=== PATIENT | male | born 1935 | race Caucasian/White ===

== ENCOUNTER 2017-03-15 16:33 | Inpatient (IN) | payer OTHER ==
[~2017-03-15] VITALS: Ht 180.3 cm; Wt 161.4 kg
--- NOTE | ~2017-03-15 | EC ---
PATIENT:OMAIRA CARPENTER DATE OF SERVICE: 03/15/17 SEX: M MEDICAL RECORD: [id number] DATE OF : 35 LOCATION:D. D.212 AGE OF PATIENT: 81 ADMISSION DATE: 03/15/17 REFERRING PHYSICIAN: INTERPRETING PHYSICIAN: SOLOMON MURRIETA MD ECHOCARDIOGRAM REPORT ECHO CHARGES 5 ECHO LIMITED CLINICAL DIAGNOSIS: CHF ECHOCARDIOGRAPHIC MEASUREMENTS (adult normal given) AC root (d.<3.7cm) 3.8 cm LV Septum d (<1.2 cm> 2.0 cm Valve Excursion 1.6 cm LV Septum (systole) 2.1 cm Left Atria (s.<4.0cm> 3.4 cm LVPW d(<1.2cm) 1.9 cm RV (d.<2.3cm) cm LVPW (sytole) 2.2 cm LV diastole(<5.6CM) 4.7 cm MV E-F(>70mm/sec) cm LV systole 2.6 cm LVOT Diameter 1.7 cm MV exc.(>10mm) cm Est.ejection fraction (50-75%) % Pericardial Effusion N DOPPLER: LVIT cm/sec A cm/sec E cm/sec LA cm/sec RVSP mmHg LVOT cm/sec AOP1/2T m/s Asc. Ao cm/sec RVOT cm/sec RA cm/sec PA cm/sec AV Gradient Peak mmHg AV Mean mmHg AV Area cm MV Gradient Peak mmHg MV Mean mmHg MV Area cm COMMENTS: Phototypesetter Operator: Shwetha LERMA Can Carrier: 2 Dr. Adan TAPE# PACS DATE OF SERVICE: 03/16/2017 PROCEDURE: Echocardiogram. FINDINGS: 1. Left ventricle chamber size is within normal limits. Left ventricular systolic function is normal. Overall ejection fraction estimated at 60%. 2. Left atrium, right atrium, and right ventricle chamber sizes are within normal limits. Left atrium measures 3.4 cm. 3. Valvular structures have normal structure and motion. ECHOCARDIOGRAM REPORT [id number] OMAIRA CARPENTER 4. Doppler interrogation reveals no significant valvular insufficiency or stenosis. 5. No evidence of pericardial effusion or left ventricular thrombus. TRANSINT:[id number] Voice Confirmation ID: [id number] DOCUMENT ID: [id number] SOLOMON MURRIETA MD at 1025 CC: [id number] DICTATION DATE: 03/17/17 0956 JEWELRY MOLD MAKER: 03/17/[address] [facility] [address] [id number]
[~2017-03-15 16:33] MED LIST: ARICEPT10 MG PO; ATIVAN1 MG PO; CELEXA20 MG PO; K-TAB10 MEQ PO; NEURONTIN 300300 MG PO; NORCO 10/325 TA1 TA1 PO; PRAVACHOL40 MG PO; PRINIVIL20 MG PO; ZYLOPRIM300 MG PO
[2017-03-15 17:12] LABS: BASOPHILS 0.3 % (0-2); EOSINOPHILS 4.1 % (0-7); HEMATOCRIT 33.8 % (42.0-54.0); HEMOGLOBIN 11.1 g/dL (13.5-17.5); IMMATURE GRANULOCYTES 0.5 % (0-5); LYMPHOCYTES 6.2 % (15-50); MCH 29.2 pg (26.0-34.0); MCHC 32.8 g/dL (31.0-37.0); MCV 88.9 fL (80.0-100.0); MONOCYTES 6.6 % (2-11); NEUTROPHILS 82.3 % (40-80); PLATELET COUNT 184 10x3/uL (130-400); RDW 14.2 % (11.5-14.5); WBC 10.5 10x3/uL (4.8-10.8)
[2017-03-15 17:40] LABS: ALKALINE PHOSPHATASE 88 U/L (46-116); ALT (SGPT) 38 U/L (10-68); CALC OSMOLALITY 277 mosm/kg (275-300); CALCIUM 8.6 mg/dL (8.5-10.1); CARBON DIOXIDE 23.1 mmol/L (21.0-32.0); CHLORIDE - SERUM 102 mmol/L (98-107); CREATININE - SERUM 1.4 mg/dL (0.6-1.3); GLUCOSE 125 mg/dL (74-106); POTASSIUM - SERUM 4.3 mmol/L (3.5-5.1); PROTEIN - SERUM 7.5 g/dL (6.4-8.2); SODIUM 137 mmol/L (136-145); UREA NITROGEN 20 mg/dL (7-18); eGFR NON AFRICAN AMERICAN 52 mL/min (90-120)
[2017-03-15 17:57] LABS: CREATINE KINASE 262 UL (21-232); MAGNESIUM - SERUM 2.3 mg/dL (1.8-2.4); PRO BNP 190 pg/mL (0-450); TROPONIN-I < 0.017 ng/mL (0.000-0.060)
[2017-03-15 18:38] LABS: CKMB 2.1 U/L (0.0-3.6)
[2017-03-15 19:00] VITALS: BP 157/76
[2017-03-15 19:31] LABS: APPEARANCE CLEAR (CLEAR); BILIRUBIN NEGATIVE (NEGATIVE); COLOR YELLOW (YELLOW); GLUCOSE NEGATIVE (NEGATIVE); KETONE NEGATIVE (NEGATIVE); NITRITE NEGATIVE (NEGATIVE); PROTEIN TRACE mg/dL (NEGATIVE); UROBILINOGEN NORMAL (NORMAL)
[2017-03-16] VITALS (7 sets, daily range): BP systolic 121–166; BP diastolic 45–91; Ht 180.3 cm; Wt 161.4 kg
[2017-03-16] MEDS ORDERED: TIMOPTIC 0.5 % O5 ML EACH EYE (01:49)
[2017-03-16 14:00] LABS: % SATURATION 17 % (15-55); IRON 36 ug/dl (35-150); TOTAL IRON BIND CAPACITY 207 ug/dl (260-445); UNSAT IRON BIND CAPACITY 171 ug/dl (150-375)
[2017-03-17] VITALS: BP 96/63
[2017-03-17 04:00] VITALS: BP 143/79
[2017-03-17 05:56] LABS: ANION GAP 14.6 mmol/L (8-16); CALCIUM 8.8 mg/dL (8.5-10.1); CARBON DIOXIDE 28.6 mmol/L (21.0-32.0); CREATININE - SERUM 1.6 mg/dL (0.6-1.3); POTASSIUM - SERUM 4.2 mmol/L (3.5-5.1)
[2017-03-17 06:31] LABS: BASOPHILS 0.3 % (0-2); EOSINOPHILS 4.1 % (0-7); HEMATOCRIT 39.5 % (42.0-54.0); HEMOGLOBIN 12.7 g/dL (13.5-17.5); IMMATURE GRANULOCYTES 0.5 % (0-5); LYMPHOCYTES 8.6 % (15-50); MCH 28.7 pg (26.0-34.0); MCHC 32.2 g/dL (31.0-37.0); MCV 89.4 fL (80.0-100.0); MEAN PLATELET VOLUME 9.7 fL (7.4-10.4); MONOCYTES 5.1 % (2-11); NEUTROPHILS 81.4 % (40-80); RBC 4.42 10x6/uL (4.20-6.10); RDW 14.3 % (11.5-14.5); WBC 8.7 10x3/uL (4.8-10.8)
[2017-03-17 06:54] LABS: PLATELET COUNT 251 10x3/uL (130-400)
[2017-03-17 07:26] LABS: FOLATE (FOLIC ACID) - SERUM >20.0 ng/mL (>3.0)
[2017-03-17 07:42] VITALS: BP 132/68
[2017-03-17 12:41] VITALS: BP 119/52
[2017-03-17 17:09] VITALS: BP 136/69
[2017-03-17 19:00] VITALS: BP 120/47
[2017-03-18 06:29] LABS: BASOPHILS 0.3 % (0-2); EOSINOPHILS 5.5 % (0-7); HEMATOCRIT 37.1 % (42.0-54.0); HEMOGLOBIN 11.9 g/dL (13.5-17.5); IMMATURE GRANULOCYTES 0.6 % (0-5); LYMPHOCYTES 11.9 % (15-50); MCH 28.7 pg (26.0-34.0); MCHC 32.1 g/dL (31.0-37.0); MCV 89.4 fL (80.0-100.0); MEAN PLATELET VOLUME 9.4 fL (7.4-10.4); MONOCYTES 6.9 % (2-11); NEUTROPHILS 74.8 % (40-80); PLATELET COUNT 229 10x3/uL (130-400); RBC 4.15 10x6/uL (4.20-6.10); RDW 14.4 % (11.5-14.5); WBC 7.1 10x3/uL (4.8-10.8)
[2017-03-18 06:39] LABS: CALCIUM 9.2 mg/dL (8.5-10.1); CARBON DIOXIDE 28.2 mmol/L (21.0-32.0); CREATININE - SERUM 1.6 mg/dL (0.6-1.3); POTASSIUM - SERUM 4.2 mmol/L (3.5-5.1)
[2017-03-18 08:26] VITALS: BP 116/62
[2017-03-18 11:40] VITALS: BP 140/57
[2017-03-18 16:11] VITALS: BP 114/75
[2017-03-18 20:25] VITALS: BP 162/72
[2017-03-19 01:13] VITALS: BP 132/41
[2017-03-19 04:32] VITALS: BP 113/61
[2017-03-19 05:39] LABS: HEMATOCRIT 36.2 % (42.0-54.0); MCH 28.9 pg (26.0-34.0); MCHC 33.1 g/dL (31.0-37.0); MCV 87.2 fL (80.0-100.0); MEAN PLATELET VOLUME 8.8 fL (7.4-10.4); NEUTROPHILS 81.1 % (40-80); PLATELET COUNT 252 10x3/uL (130-400); RBC 4.15 10x6/uL (4.20-6.10); RDW 14.6 % (11.5-14.5); WBC 7.7 10x3/uL (4.8-10.8)
[2017-03-19 05:56] LABS: ANION GAP 16.5 mmol/L (8-16); CALCIUM 9.1 mg/dL (8.5-10.1); CARBON DIOXIDE 24.2 mmol/L (21.0-32.0); CREATININE - SERUM 1.7 mg/dL (0.6-1.3); POTASSIUM - SERUM 3.7 mmol/L (3.5-5.1)
[2017-03-19 08:32] VITALS: BP 128/83
[2017-03-19 11:24] VITALS: BP 133/80
[2017-03-19 15:46] VITALS: BP 134/82
[2017-03-19 20:00] VITALS: BP 112/55
[2017-03-20 06:37] LABS: ANION GAP 14.8 mmol/L (8-16); CREATININE - SERUM 1.7 mg/dL (0.6-1.3); POTASSIUM - SERUM 3.8 mmol/L (3.5-5.1)
[2017-03-20 07:00] LABS: BASOPHILS 0.3 % (0-2); EOSINOPHILS 2.9 % (0-7); HEMATOCRIT 39.1 % (42.0-54.0); HEMOGLOBIN 12.7 g/dL (13.5-17.5); LYMPHOCYTES 9.9 % (15-50); MCH 28.5 pg (26.0-34.0); MCHC 32.5 g/dL (31.0-37.0); MCV 87.9 fL (80.0-100.0); MEAN PLATELET VOLUME 9.6 fL (7.4-10.4); MONOCYTES 7.2 % (2-11); NEUTROPHILS 78.7 % (40-80); PLATELET COUNT 251 10x3/uL (130-400); RBC 4.45 10x6/uL (4.20-6.10); RDW 14.2 % (11.5-14.5); WBC 9.4 10x3/uL (4.8-10.8)
[2017-03-20 07:45] VITALS: BP 150/85
[2017-03-20 15:19] LABS: ANA REFLEX - DIRECT Negative (Negative)
[2017-03-20 16:17] VITALS: BP 142/75
[2017-03-20 19:00] VITALS: BP 135/68
[2017-03-20 21:13] LABS: ERYTHROCYTE SEDIMENTATION RATE 39 mm/hr (0-20)
[2017-03-21 04:00] VITALS: BP 125/74
[2017-03-21 05:58] LABS: BASOPHILS 0.3 % (0-2); EOSINOPHILS 2.4 % (0-7); HEMATOCRIT 38.3 % (42.0-54.0); HEMOGLOBIN 12.3 g/dL (13.5-17.5); IMMATURE GRANULOCYTES 0.9 % (0-5); LYMPHOCYTES 9.7 % (15-50); MCH 28.8 pg (26.0-34.0); MCHC 32.1 g/dL (31.0-37.0); MCV 89.7 fL (80.0-100.0); MEAN PLATELET VOLUME 9.4 fL (7.4-10.4); MONOCYTES 6.8 % (2-11); NEUTROPHILS 79.9 % (40-80); PLATELET COUNT 237 10x3/uL (130-400); RBC 4.27 10x6/uL (4.20-6.10); RDW 14.3 % (11.5-14.5); WBC 10.9 10x3/uL (4.8-10.8)
[2017-03-21 06:28] LABS: ALBUMIN 3.1 g/dL (3.4-5.0); ANION GAP 17.4 mmol/L (8-16); BILIRUBIN - TOTAL 0.44 mg/dL (0.2-1.3); CARBON DIOXIDE 24.8 mmol/L (21.0-32.0); CREATININE - SERUM 2.1 mg/dL (0.6-1.3); POTASSIUM - SERUM 4.2 mmol/L (3.5-5.1); PROTEIN - SERUM 7.8 g/dL (6.4-8.2)
[2017-03-21 08:46] VITALS: BP 98/39
[2017-03-21 11:23] VITALS: BP 110/71
[2017-03-21 15:39] VITALS: BP 152/72
[2017-03-21 20:00] VITALS: BP 110/56
[2017-03-22 05:22] LABS: BASOPHILS 0.2 % (0-2); EOSINOPHILS 2.6 % (0-7); HEMATOCRIT 38.7 % (42.0-54.0); HEMOGLOBIN 12.4 g/dL (13.5-17.5); IMMATURE GRANULOCYTES 1.1 % (0-5); LYMPHOCYTES 9.5 % (15-50); MCH 28.8 pg (26.0-34.0); MCV 89.8 fL (80.0-100.0); MEAN PLATELET VOLUME 9.5 fL (7.4-10.4); MONOCYTES 6.2 % (2-11); NEUTROPHILS 80.4 % (40-80); PLATELET COUNT 241 10x3/uL (130-400); RBC 4.31 10x6/uL (4.20-6.10); RDW 14.2 % (11.5-14.5); WBC 9.8 10x3/uL (4.8-10.8)
[2017-03-22 05:44] LABS: ANION GAP 15.5 mmol/L (8-16); CALCIUM 8.8 mg/dL (8.5-10.1); CARBON DIOXIDE 27.3 mmol/L (21.0-32.0); CREATININE - SERUM 2.9 mg/dL (0.6-1.3); POTASSIUM - SERUM 3.8 mmol/L (3.5-5.1)
[2017-03-22 08:31] VITALS: BP 122/59
[2017-03-22 11:04] VITALS: BP 115/71
[2017-03-22 15:26] LABS: IMMUNOGLOBULIN E QNS IU/mL (())
[2017-03-22 15:33] VITALS: BP 119/49
[2017-03-22 19:00] VITALS: BP 99/48
[2017-03-23 04:00] VITALS: BP 132/51
[2017-03-23 04:46] LABS: BASOPHILS 0.4 % (0-2); EOSINOPHILS 2.4 % (0-7); HEMATOCRIT 34.9 % (42.0-54.0); HEMOGLOBIN 11.1 g/dL (13.5-17.5); IMMATURE GRANULOCYTES 1.1 % (0-5); LYMPHOCYTES 11.8 % (15-50); MCH 28.4 pg (26.0-34.0); MCHC 31.8 g/dL (31.0-37.0); MCV 89.3 fL (80.0-100.0); MEAN PLATELET VOLUME 9.6 fL (7.4-10.4); MONOCYTES 6.6 % (2-11); NEUTROPHILS 77.7 % (40-80); PLATELET COUNT 236 10x3/uL (130-400); RBC 3.91 10x6/uL (4.20-6.10); RDW 14.3 % (11.5-14.5); WBC 8.4 10x3/uL (4.8-10.8)
[2017-03-23 05:07] LABS: ANION GAP 14.5 mmol/L (8-16); CALCIUM 8.1 mg/dL (8.5-10.1); CARBON DIOXIDE 26.8 mmol/L (21.0-32.0); CREATININE - SERUM 2.5 mg/dL (0.6-1.3); POTASSIUM - SERUM 4.3 mmol/L (3.5-5.1)
[2017-03-23 08:18] VITALS: BP 143/82
[2017-03-23 21:54] VITALS: BP 133/57
[2017-03-24 01:14] VITALS: BP 144/75
[2017-03-24 06:08] VITALS: BP 112/64
[2017-03-24 09:18] VITALS: BP 147/72
[2017-03-24 12:12] LABS: BASOPHILS 0.2 % (0-2); EOSINOPHILS 1.7 % (0-7); HEMATOCRIT 34.9 % (42.0-54.0); HEMOGLOBIN 11.4 g/dL (13.5-17.5); IMMATURE GRANULOCYTES 0.6 % (0-5); LYMPHOCYTES 8.7 % (15-50); MCHC 32.7 g/dL (31.0-37.0); MCV 88.8 fL (80.0-100.0); MEAN PLATELET VOLUME 9.4 fL (7.4-10.4); MONOCYTES 7.3 % (2-11); NEUTROPHILS 81.5 % (40-80); PLATELET COUNT 230 10x3/uL (130-400); RBC 3.93 10x6/uL (4.20-6.10); RDW 14.2 % (11.5-14.5); WBC 9.6 10x3/uL (4.8-10.8)
[2017-03-24 12:25] LABS: ANION GAP 15.5 mmol/L (8-16); CALCIUM 8.6 mg/dL (8.5-10.1); CARBON DIOXIDE 22.9 mmol/L (21.0-32.0); POTASSIUM - SERUM 4.4 mmol/L (3.5-5.1)
[2017-03-24 12:32] LABS: CREATININE - SERUM 1.5 mg/dL (0.6-1.3)
[2017-03-24] MEDS ORDERED: COREG6.25 MG PO (14:15)
[2017-03-24] MEDS ORDERED: AUGMENTIN 875-11 TAB PO (14:19)
[2017-03-28 18:10] LABS: IMMUNOGLOBULIN E 308 IU/mL (0-100)
== END 2017-03-24 15:43 | disposition home or self-care (01) | DRG 291 ==
LOC: D.ER 16:33 → D.M2 18:39
PROVIDERS: Emergency Medicine; Family Medicine; Internal Medicine Nephrology; Internal Medicine Pulmonary Disease
DX: I11.0 Hypertensive heart disease with heart failure (principal); R53.2 Functional quadriplegia; J96.01 Acute respiratory failure with hypoxia; J84.9 Interstitial pulmonary disease, unspecified; Z68.42 Body mass index [BMI] 45.0-49.9, adult; K92.1 Melena; I50.33 Acute on chronic diastolic (congestive) heart failure; E78.5 Hyperlipidemia, unspecified; J44.9 Chronic obstructive pulmonary disease, unspecified; G47.33 Obstructive sleep apnea (adult) (pediatric); F03.90 Unspecified dementia, unspecified severity, without behavioral disturbance, psychotic disturbance, mood disturbance, and anxiety; J30.9 Allergic rhinitis, unspecified; M19.90 Unspecified osteoarthritis, unspecified site; I73.9 Peripheral vascular disease, unspecified; D64.9 Anemia, unspecified; K59.00 Constipation, unspecified; E66.01 Morbid (severe) obesity due to excess calories; Z77.090 Contact with and (suspected) exposure to asbestos; Z86.73 Personal history of transient ischemic attack (TIA), and cerebral infarction without residual deficits

== ENCOUNTER 2018-02-21 22:54 | Inpatient (IN) | payer OTHER ==
[~2018-02-21] VITALS: Ht 180.3 cm; Wt 145.1 kg
[~2018-02-21 22:54] MED LIST changes: +AUGMENTIN 875-11 TAB PO; +COREG6.25 MG PO; +IPRAT-ALBUT 0.5-3 ML UPD; +STERAPRED DS 1010 MG PO; +TIMOPTIC 0.5 % O5 ML EACH EYE; +ZITHROMAX500 MG PO
[2018-02-21] MEDS ORDERED: AUGMENTIN 875-11 TAB PO (22:59)
[2018-02-22] VITALS (9 sets, daily range): BP systolic 107–164; BP diastolic 53–98; BMI 44.7; BMI 44.6
[2018-02-22 03:00] LABS: BASOPHILS 0.5 % (0-2); EOSINOPHILS 4.2 % (0-7); HEMATOCRIT 39.6 % (42.0-54.0); HEMOGLOBIN 13.3 g/dL (13.5-17.5); IMMATURE GRANULOCYTES 0.3 % (0-5); LYMPHOCYTES 18.5 % (15-50); MCHC 33.6 g/dL (31.0-37.0); MCV 86.5 fL (80.0-100.0); MEAN PLATELET VOLUME 9.5 fL (7.4-10.4); MONOCYTES 6.6 % (2-11); NEUTROPHILS 69.9 % (40-80); PLATELET COUNT 163 10x3/uL (130-400); RBC 4.58 10x6/uL (4.20-6.10); RDW 13.2 % (11.5-14.5); WBC 6.7 10x3/uL (4.8-10.8)
[2018-02-22 03:01] LABS: APPEARANCE CLEAR (CLEAR); BILIRUBIN NEGATIVE (NEGATIVE); COLOR YELLOW (YELLOW); GLUCOSE NEGATIVE (NEGATIVE); KETONE NEGATIVE (NEGATIVE); NITRITE NEGATIVE (NEGATIVE); PROTEIN NEGATIVE (NEGATIVE); SPECIFIC GRAVITY 1.015 (1.005-1.020); UROBILINOGEN NORMAL (NORMAL)
[2018-02-22 03:19] LABS: ALBUMIN 3.4 g/dL (3.4-5.0); ANION GAP 12.7 mmol/L (8-16); BILIRUBIN - TOTAL 0.29 mg/dL (0.2-1.3); CALCIUM 8.5 mg/dL (8.5-10.1); CARBON DIOXIDE 25.6 mmol/L (21.0-32.0); CREATININE - SERUM 1.2 mg/dL (0.6-1.3); POTASSIUM - SERUM 4.3 mmol/L (3.5-5.1); PROTEIN - SERUM 7.4 g/dL (6.4-8.2)
[2018-02-23 04:00] VITALS: BP 129/53
[2018-02-23 07:34] LABS: ALBUMIN 2.8 g/dL (3.4-5.0); ALKALINE PHOSPHATASE 52 U/L (46-116); ALT (SGPT) 19 U/L (10-68); BILIRUBIN - TOTAL 0.36 mg/dL (0.2-1.3); CALC OSMOLALITY 276 mosm/kg (275-300); CALCIUM 8.2 mg/dL (8.5-10.1); CARBON DIOXIDE 22.7 mmol/L (21.0-32.0); CHLORIDE - SERUM 107 mmol/L (98-107); GLUCOSE 91 mg/dL (74-106); POTASSIUM - SERUM 3.9 mmol/L (3.5-5.1); PROTEIN - SERUM 6.3 g/dL (6.4-8.2); SODIUM 138 mmol/L (136-145); UREA NITROGEN 14 mg/dL (7-18); eGFR NON AFRICAN AMERICAN 76 mL/min (90-120)
[2018-02-23 08:38] LABS: BASOPHILS 0.4 % (0-2); EOSINOPHILS 5.6 % (0-7); HEMATOCRIT 36.3 % (42.0-54.0); HEMOGLOBIN 12.2 g/dL (13.5-17.5); IMMATURE GRANULOCYTES 0.2 % (0-5); LYMPHOCYTES 22.4 % (15-50); MCH 28.9 pg (26.0-34.0); MCHC 33.6 g/dL (31.0-37.0); MEAN PLATELET VOLUME 9.5 fL (7.4-10.4); MONOCYTES 6.9 % (2-11); NEUTROPHILS 64.5 % (40-80); PLATELET COUNT 139 10x3/uL (130-400); RBC 4.22 10x6/uL (4.20-6.10); RDW 13.4 % (11.5-14.5)
[2018-02-23 08:51] VITALS: BP 166/70
[2018-02-23 09:01] VITALS: Ht 180.3 cm; Wt 145.1 kg
[2018-02-23 09:04] LABS: WBC 4.5 10x3/uL (4.8-10.8)
[2018-02-23 15:27] VITALS: BP 140/62
[2018-02-23 20:00] VITALS: BP 131/55
[2018-02-24] VITALS (7 sets, daily range): BP systolic 101–180; BP diastolic 53–78
[2018-02-24 05:54] LABS: BASOPHILS 0.2 % (0-2); EOSINOPHILS 3.9 % (0-7); HEMATOCRIT 36.5 % (42.0-54.0); HEMOGLOBIN 12.1 g/dL (13.5-17.5); IMMATURE GRANULOCYTES 0.2 % (0-5); LYMPHOCYTES 17.2 % (15-50); MCH 28.7 pg (26.0-34.0); MCHC 33.2 g/dL (31.0-37.0); MCV 86.7 fL (80.0-100.0); MEAN PLATELET VOLUME 9.7 fL (7.4-10.4); MONOCYTES 8.1 % (2-11); NEUTROPHILS 70.4 % (40-80); PLATELET COUNT 144 10x3/uL (130-400); RBC 4.21 10x6/uL (4.20-6.10); RDW 13.3 % (11.5-14.5)
[2018-02-24 05:57] LABS: WBC 5.7 10x3/uL (4.8-10.8)
[2018-02-24 06:31] LABS: ALBUMIN 2.7 g/dL (3.4-5.0); ANION GAP 13.5 mmol/L (8-16); BILIRUBIN - TOTAL 0.34 mg/dL (0.2-1.3); CARBON DIOXIDE 22.4 mmol/L (21.0-32.0); CREATININE - SERUM 1.1 mg/dL (0.6-1.3); POTASSIUM - SERUM 3.9 mmol/L (3.5-5.1); PROTEIN - SERUM 6.2 g/dL (6.4-8.2)
[2018-02-24 12:57] LABS: ERYTHROCYTE SEDIMENTATION RATE 13 mm/hr (0-20)
[2018-02-25] MEDS ORDERED: MELATONIN 3 MG1 TAB PO (04:52)
[2018-02-25 07:34] LABS: BASOPHILS 0.4 % (0-2); EOSINOPHILS 5.3 % (0-7); HEMATOCRIT 35.9 % (42.0-54.0); IMMATURE GRANULOCYTES 0.4 % (0-5); LYMPHOCYTES 17.2 % (15-50); MCH 28.8 pg (26.0-34.0); MCHC 33.4 g/dL (31.0-37.0); MCV 86.1 fL (80.0-100.0); MEAN PLATELET VOLUME 9.3 fL (7.4-10.4); MONOCYTES 7.2 % (2-11); NEUTROPHILS 69.5 % (40-80); PLATELET COUNT 143 10x3/uL (130-400); RBC 4.17 10x6/uL (4.20-6.10); RDW 13.5 % (11.5-14.5); WBC 5.7 10x3/uL (4.8-10.8)
[2018-02-25 08:06] LABS: ALKALINE PHOSPHATASE 50 U/L (46-116); ALT (SGPT) 19 U/L (10-68); BILIRUBIN - TOTAL 0.35 mg/dL (0.2-1.3); CALC OSMOLALITY 278 mosm/kg (275-300); CALCIUM 8.5 mg/dL (8.5-10.1); CARBON DIOXIDE 24.5 mmol/L (21.0-32.0); CHLORIDE - SERUM 105 mmol/L (98-107); GLUCOSE 98 mg/dL (74-106); PROTEIN - SERUM 6.8 g/dL (6.4-8.2); SODIUM 140 mmol/L (136-145); UREA NITROGEN 13 mg/dL (7-18); eGFR NON AFRICAN AMERICAN 76 mL/min (90-120)
[2018-02-25 09:31] VITALS: BP 131/60
--- NOTE | 2018-02-25 09:34 | MORECARE ---
CASE MANAGEMENT DISCHARGE SUMMARY PATIENT: OMAIRA CARPENTER UNIT: [id number] ADM DATE: 02/22/18 AGE: 82 : 35 SEX: M ROOM/BED: D.2223 AUTHOR: WANDA BORRERO PHYSICIAN: REFERRING PHYSICIAN: JOSH PULIDO MD DATE OF SERVICE: 02/25/18 Discharge Plan Patient Name: OMAIRA CARPENTER Facility: [facility]:[place] : 1935 Planned Disposition: Home Health Service Anticipated Discharge Date: 02/28/18 Discharge Date: Expected LOS: 6 Initial Reviewer: [email or web address] Initial Review Date: 02/25/2018 Generated: 02/25/18 10:34 am DCPIA - Discharge Planning Initial Assessment Updated by [email or web address]: Tran Pagan on 02/25/18 9:34 am * Is the patient Alert and Oriented? Yes * How many steps to enter\exit or inside your home? RAMP * PCP DR. STANLEY * Pharmacy [facility] * Preadmission Environment Home with Family * ADLs Partial Dependent * Partial ADLs (Assistance needed) Ambulation Bathing Dressing Eating Medication Management Toileting * Equipment Bedside Commode Cane Shower Chair Walker Wheelchair * List name and contact numbers for known caregivers / representatives who currently or will assist patient after discharge: NOMAN GRIGGS () [phone] * Verbal permission to speak to the caregivers and representatives has been obtained from the patient. Yes * Community resources currently utilized None * Additional services required to return to the preadmission environment? Yes * Can the patient safely return to the preadmission environment? Yes * Has this patient been hospitalized within the prior 30 days at any hospital? No Patient Name: OMAIRA CARPENTER Page [id number] at 0934 All edits/amendments must be made on the electronic document DICTATION DATE: 02/25/18932 INSPECTOR HEATING AND REFRIGERATION: RAFFY 02/25/18932 RPT#: [id number] DC DATE: STATUS: ADM IN [facility] [address] [place] [address] END OF REPORT
--- NOTE | 2018-02-25 09:41 | MORECARE ---
CASE MANAGEMENT DISCHARGE SUMMARY PATIENT: OMAIRA CARPENTER UNIT: [id number] ADM DATE: 02/22/18 AGE: 82 : 35 SEX: M ROOM/BED: D.2223 AUTHOR: WANDA BORRERO PHYSICIAN: REFERRING PHYSICIAN: JOSH PULIDO MD DATE OF SERVICE: 02/25/18 Discharge Plan Patient Name: OMAIRA CARPENTER Facility: [facility]:[place] : 1935 Planned Disposition: Home Health Service Anticipated Discharge Date: 02/28/18 Discharge Date: Expected LOS: 6 Initial Reviewer: [email or web address] Initial Review Date: 02/25/2018 Generated: 02/25/18 10:40 am Comments DCP- Discharge Planning Updated by [email or web address]: Tran Pagan on 02/25/18 8:[address] Patient Name: OMAIRA CARPENTER Admission Status: ER Accout number: [id number] Admission Date: 02-22-2018 : 1935 Admission Diagnosis:MYOPATHY, UNSPECIFIED Attending: JOSH JIMENEZ Current LOS: 3 Anticipated DC Date: 02-28-2018 Planned Disposition: Home Health Service Primary Insurance: [facility] Discharge Planning Comments: CM MET WITH PATIENT AND CALLED SPOUSE (NOMAN) REGARDING D/C NEEDS AND PLANS. PATIENTS WILL DRIVE HIM HOME AT DISCHARGE AND THERE IS A RAMP TO ENTER HOME AND NO STAIRS INSIDE. PATIENT HAS HELP DAILY WITH BATHING DRESSING, EATING, MEDS, AND TOILETING. PATIENTS HANDS ARE NUMB AND IT IS HARD TO FEED HIMSELF PER . PATIENT HAS A WHEELCHAIR, WALKER, CANE, SHOWER STOOL, AND BS COMMODE IF NEEDED AT HOME. PATIENTS PCP IS DR. STANLEY AND PHARMACY IS [facility]. PATIENTS VERBALLY CHOSE [facility] FOR PATIENT AND FORM IS FILED IN CHART. CM WILL CONTINUE TOF FOLLOW PATIENT WITH D/C NEEDS AND PLANS. PCP [facility] N[place] () [phone] Sustainable Products Marketing Manager: Tran Pagan DCPIA - Discharge Planning Initial Assessment Updated by [email or web address]: Tran Pagan on 02/25/18 9:34 am * Is the patient Alert and Oriented? Yes * How many steps to enter\exit or inside your home? RAMP * PCP DR. STANLEY * Pharmacy [facility] [address] * Preadmission Environment Home with Family * ADLs Partial Dependent * Partial ADLs (Assistance needed) Ambulation Bathing Dressing Eating Medication Management Toileting * Equipment Bedside Commode Cane Shower Chair Walker Wheelchair * List name and contact numbers for known caregivers / representatives who currently or will assist patient after discharge: NOMAN GRIGGS () * Verbal permission to speak to the caregivers and representatives has been obtained from the patient. Yes * Community resources currently utilized None * Additional services required to return to the preadmission environment? Yes * Can the patient safely return to the preadmission environment? Yes * Has this patient been hospitalized within the prior 30 days at any hospital? No Last DP export: 02/25/18 8:34 Patient Name: OMAIRA CARPENTER Page [phone] at 0941 All edits/amendments must be made on the electronic document DICTATION DATE: 02/25/18939 DECKHAND CLAM DREDGE: RAFFY 02/25/18939 RPT#: [id number] DC DATE: STATUS: ADM IN [facility] [address] [place] [address] END OF REPORT
[2018-02-25 12:00] VITALS: BP 149/69
[2018-02-25 16:00] VITALS: BP 168/68
[2018-02-25 21:02] VITALS: BP 140/84
[2018-02-26] VITALS: BP 180/78; BP 185/94
[2018-02-26 04:00] VITALS: BP 104/48
[2018-02-26 06:40] LABS: BASOPHILS 0.8 % (0-2); EOSINOPHILS 7.3 % (0-7); HEMATOCRIT 36.4 % (42.0-54.0); HEMOGLOBIN 11.9 g/dL (13.5-17.5); IMMATURE GRANULOCYTES 0.4 % (0-5); LYMPHOCYTES 16.4 % (15-50); MCH 28.5 pg (26.0-34.0); MCHC 32.7 g/dL (31.0-37.0); MCV 87.1 fL (80.0-100.0); MEAN PLATELET VOLUME 10.3 fL (7.4-10.4); MONOCYTES 6.2 % (2-11); NEUTROPHILS 68.9 % (40-80); PLATELET COUNT 170 10x3/uL (130-400); RBC 4.18 10x6/uL (4.20-6.10); RDW 13.6 % (11.5-14.5); WBC 5.3 10x3/uL (4.8-10.8)
[2018-02-26 06:58] LABS: ALBUMIN 2.8 g/dL (3.4-5.0); BILIRUBIN - TOTAL 0.35 mg/dL (0.2-1.3); CALCIUM 8.7 mg/dL (8.5-10.1); CREATININE - SERUM 1.1 mg/dL (0.6-1.3); PROTEIN - SERUM 6.9 g/dL (6.4-8.2)
[2018-02-26 09:39] VITALS: BP 142/72
[2018-02-26 13:21] VITALS: BP 130/64
[2018-02-26 17:20] VITALS: BP 125/70
[2018-02-26 20:46] VITALS: BP 124/52
[2018-02-27 04:22] VITALS: BP 148/69
[2018-02-27 06:15] LABS: BASOPHILS 0.4 % (0-2); EOSINOPHILS 6.2 % (0-7); HEMATOCRIT 36.8 % (42.0-54.0); IMMATURE GRANULOCYTES 0.2 % (0-5); MCH 28.7 pg (26.0-34.0); MCHC 32.6 g/dL (31.0-37.0); MEAN PLATELET VOLUME 9.6 fL (7.4-10.4); MONOCYTES 7.5 % (2-11); NEUTROPHILS 68.7 % (40-80); PLATELET COUNT 172 10x3/uL (130-400); RBC 4.18 10x6/uL (4.20-6.10); RDW 13.5 % (11.5-14.5); WBC 4.7 10x3/uL (4.8-10.8)
[2018-02-27 06:30] LABS: ALBUMIN 2.8 g/dL (3.4-5.0); ANION GAP 14.1 mmol/L (8-16); BILIRUBIN - TOTAL 0.36 mg/dL (0.2-1.3); CALCIUM 8.7 mg/dL (8.5-10.1); CARBON DIOXIDE 22.9 mmol/L (21.0-32.0); CREATININE - SERUM 1.1 mg/dL (0.6-1.3); PROTEIN - SERUM 6.9 g/dL (6.4-8.2)
[2018-02-27 08:40] VITALS: BP 171/68
[2018-02-27 20:00] VITALS: BP 156/79
[2018-02-28 04:00] VITALS: BP 167/65
[2018-02-28 05:55] LABS: BASOPHILS 0.5 % (0-2); EOSINOPHILS 6.8 % (0-7); HEMATOCRIT 37.7 % (42.0-54.0); HEMOGLOBIN 12.3 g/dL (13.5-17.5); IMMATURE GRANULOCYTES 0.5 % (0-5); LYMPHOCYTES 18.9 % (15-50); MCH 28.9 pg (26.0-34.0); MCHC 32.6 g/dL (31.0-37.0); MCV 88.7 fL (80.0-100.0); MEAN PLATELET VOLUME 9.6 fL (7.4-10.4); MONOCYTES 7.7 % (2-11); NEUTROPHILS 65.6 % (40-80); PLATELET COUNT 183 10x3/uL (130-400); RBC 4.25 10x6/uL (4.20-6.10); RDW 13.5 % (11.5-14.5); WBC 4.4 10x3/uL (4.8-10.8)
[2018-02-28 06:37] LABS: ANION GAP 16.3 mmol/L (8-16); CALCIUM 8.8 mg/dL (8.5-10.1); CREATININE - SERUM 1.1 mg/dL (0.6-1.3); POTASSIUM - SERUM 4.3 mmol/L (3.5-5.1)
[2018-02-28 08:51] VITALS: BP 157/98
[2018-02-28 16:00] VITALS: BP 168/96
--- NOTE | 2018-02-28 16:03 | MORECARE ---
CASE MANAGEMENT DISCHARGE SUMMARY PATIENT: OMAIRA CARPENTER UNIT: [id number] ADM DATE: 02/22/18 AGE: 82 : 35 SEX: M ROOM/BED: D.2223 AUTHOR: GISSELL,DOC PHYSICIAN: REFERRING PHYSICIAN: JOSH PULIDO MD DATE OF SERVICE: 02/28/18 Discharge Plan Patient Name: OMAIRA CARPENTER Facility: [facility]:[place] : 1935 Planned Disposition: Home Health Service Anticipated Discharge Date: 02/28/18 Discharge Date: Expected LOS: 6 Initial Reviewer: [email or web address] Initial Review Date: 02/25/2018 Generated: 02/28/18 5:03 pm Comments DCP- Discharge Planning Updated by [email or web address]: Jessica Chew on 02/28/18 2:[address] Received a call from Lou from Lou from [employer] #[phone]. She states she does not feel like she can authorize any physical therapy placement right now until after his surgery. CM will continue to follow and assist with discharge planning/needs. DCP- Discharge Planning Updated by [email or web address]: Tran Pagan on 02/25/18 8:[address] Patient Name: OMAIRA CARPENTER Admission Status: ER Accout number: [id number] Admission Date: 02-22-2018 : 1935 Admission Diagnosis:MYOPATHY, UNSPECIFIED Attending: JOSH JIMENEZ Current LOS: 3 Anticipated DC Date: 02-28-2018 Planned Disposition: Home Health Service Primary Insurance: [facility] Discharge Planning Comments: CM MET WITH PATIENT AND CALLED SPOUSE (NOMAN) REGARDING D/C NEEDS AND PLANS. PATIENTS WILL DRIVE HIM HOME AT DISCHARGE AND THERE IS A RAMP TO ENTER HOME AND NO STAIRS INSIDE. PATIENT HAS HELP DAILY WITH BATHING DRESSING, EATING, MEDS, AND TOILETING. PATIENTS HANDS ARE NUMB AND IT IS HARD TO FEED HIMSELF PER . PATIENT HAS A WHEELCHAIR, WALKER, CANE, SHOWER STOOL, AND BS COMMODE IF NEEDED AT HOME. PATIENTS PCP IS DR. STANLEY AND PHARMACY IS [facility]. PATIENTS VERBALLY CHOSE [facility] FOR PATIENT AND FORM IS FILED IN CHART. CM WILL CONTINUE TOF FOLLOW PATIENT WITH D/C NEEDS AND PLANS. [facility]CP [facility] [address] () [phone] Health Consultant: Tran Pagan DCPIA - Discharge Planning Initial Assessment Updated by [email or web address]: Tran Pagan on 02/25/18 9:34 am * Is the patient Alert and Oriented? Yes * How many steps to enter\exit or inside your home? RAMP * PCP DR. STANLEY * Pharmacy [facility] [address] * Preadmission Environment Home with Family * ADLs Partial Dependent * Partial ADLs (Assistance needed) Ambulation Bathing Dressing Eating Medication Management Toileting * Equipment Bedside Commode Cane Shower Chair Walker Wheelchair * List name and contact numbers for known caregivers / representatives who currently or will assist patient after discharge: NOMAN GRIGGS () * Verbal permission to speak to the caregivers and representatives has been obtained from the patient. Yes * Community resources currently utilized None * Additional services required to return to the preadmission environment? Yes * Can the patient safely return to the preadmission environment? Yes * Has this patient been hospitalized within the prior 30 days at any hospital? No Last DP export: 02/25/18 8:41 Patient Name: OMAIRA CARPENTER Page 66468 at 1603 All edits/amendments must be made on the electronic document DICTATION DATE: 02/28/18 160 TATTOO AND BODY ARTIST: RAFFY 02/28/18 160 RPT#: [id number] DC DATE: STATUS: ADM IN [facility] [address] [place] [address] END OF REPORT
[2018-02-28 20:00] VITALS: BP 158/80
[2018-03-01] VITALS: BP 159/69
[2018-03-01 05:38] VITALS: BP 155/74
[2018-03-01 05:42] LABS: BASOPHILS 0.4 % (0-2); EOSINOPHILS 5.7 % (0-7); HEMATOCRIT 37.1 % (42.0-54.0); HEMOGLOBIN 12.2 g/dL (13.5-17.5); IMMATURE GRANULOCYTES 0.2 % (0-5); LYMPHOCYTES 15.9 % (15-50); MCH 28.8 pg (26.0-34.0); MCHC 32.9 g/dL (31.0-37.0); MCV 87.7 fL (80.0-100.0); MEAN PLATELET VOLUME 9.6 fL (7.4-10.4); NEUTROPHILS 68.8 % (40-80); PLATELET COUNT 173 10x3/uL (130-400); RBC 4.23 10x6/uL (4.20-6.10); RDW 13.4 % (11.5-14.5); WBC 5.1 10x3/uL (4.8-10.8)
[2018-03-01 06:04] LABS: ANION GAP 14.7 mmol/L (8-16); CALCIUM 8.7 mg/dL (8.5-10.1); CARBON DIOXIDE 24.3 mmol/L (21.0-32.0); CREATININE - SERUM 1.1 mg/dL (0.6-1.3)
[2018-03-01 08:45] VITALS: BP 160/88
[2018-03-01 12:45] VITALS: BP 155/73
[2018-03-01 16:37] VITALS: BP 108/77
[2018-03-01 20:00] VITALS: BP 144/69
[2018-03-02] VITALS: BP 136/68
[2018-03-02 07:50] LABS: BASOPHILS 0.4 % (0-2); EOSINOPHILS 5.2 % (0-7); HEMATOCRIT 35.3 % (42.0-54.0); HEMOGLOBIN 11.5 g/dL (13.5-17.5); IMMATURE GRANULOCYTES 0.2 % (0-5); MCH 28.5 pg (26.0-34.0); MCHC 32.6 g/dL (31.0-37.0); MCV 87.6 fL (80.0-100.0); MEAN PLATELET VOLUME 9.5 fL (7.4-10.4); MONOCYTES 8.2 % (2-11); PLATELET COUNT 168 10x3/uL (130-400); RBC 4.03 10x6/uL (4.20-6.10); RDW 13.3 % (11.5-14.5); WBC 4.9 10x3/uL (4.8-10.8)
[2018-03-02 07:53] LABS: ANION GAP 13.5 mmol/L (8-16); CALCIUM 8.6 mg/dL (8.5-10.1); CARBON DIOXIDE 24.9 mmol/L (21.0-32.0); CREATININE - SERUM 1.2 mg/dL (0.6-1.3); POTASSIUM - SERUM 4.4 mmol/L (3.5-5.1)
[2018-03-02 08:45] VITALS: BP 143/64
[2018-03-02 12:45] VITALS: BP 137/62
[2018-03-02 16:48] VITALS: BP 125/54
[2018-03-02 20:28] VITALS: BP 160/71
[2018-03-03 00:30] VITALS: BP 159/78
[2018-03-03 07:32] LABS: BASOPHILS 0.4 % (0-2); EOSINOPHILS 6.5 % (0-7); HEMATOCRIT 33.9 % (42.0-54.0); HEMOGLOBIN 10.9 g/dL (13.5-17.5); IMMATURE GRANULOCYTES 0.2 % (0-5); LYMPHOCYTES 17.5 % (15-50); MCH 28.5 pg (26.0-34.0); MCHC 32.2 g/dL (31.0-37.0); MCV 88.7 fL (80.0-100.0); MEAN PLATELET VOLUME 9.6 fL (7.4-10.4); MONOCYTES 8.4 % (2-11); PLATELET COUNT 183 10x3/uL (130-400); RBC 3.82 10x6/uL (4.20-6.10); RDW 13.4 % (11.5-14.5); WBC 5.1 10x3/uL (4.8-10.8)
[2018-03-03 08:06] LABS: ANION GAP 15.6 mmol/L (8-16); CALCIUM 8.5 mg/dL (8.5-10.1); CARBON DIOXIDE 23.6 mmol/L (21.0-32.0); CREATININE - SERUM 1.1 mg/dL (0.6-1.3); POTASSIUM - SERUM 4.2 mmol/L (3.5-5.1)
[2018-03-03 08:34] VITALS: BP 134/43
[2018-03-03 15:28] VITALS: BP 130/52
[2018-03-03 21:45] VITALS: BP 148/101
--- NOTE | 2018-03-06 07:15 | MORECARE ---
CASE MANAGEMENT DISCHARGE SUMMARY PATIENT: OMAIRA CARPENTER UNIT: [id number] ADM DATE: 02/22/18 AGE: 82 : 35 SEX: M ROOM/BED: D.2223 AUTHOR: WANDA BORRERO PHYSICIAN: REFERRING PHYSICIAN: JOSH PULIDO MD DATE OF SERVICE: 03/06/18 Discharge Plan Patient Name: OMAIRA CARPENTER Facility: [facility]:[place] : 1935 Planned Disposition: Home Health Service Anticipated Discharge Date: 02/28/18 Discharge Date: 03/04/2018 Expected LOS: 6 Initial Reviewer: [email or web address] Initial Review Date: 02/25/2018 Generated: 03/06/18 8:14 am Comments DCP- Discharge Planning Updated by [email or web address]: Jessica Chew on 02/28/18 2:[address] Received a call from Lou from Lou from [facility] #[phone]. She states she does not feel like she can authorize any physical therapy placement right now until after his surgery. CM will continue to follow and assist with discharge planning/needs. DCP- Discharge Planning Updated by [email or web address]: Tran Pagan on 02/25/18 8:[address] Patient Name: OMAIRA CARPENTER Admission Status: ER Accout number: [id number] Admission Date: 02-22-2018 : 1935 Admission Diagnosis:MYOPATHY, UNSPECIFIED Attending: JOSH JIMENEZ Current LOS: 3 Anticipated DC Date: 02-28-2018 Planned Disposition: Home Health Service Primary Insurance: [facility] Discharge Planning Comments: CM MET WITH PATIENT AND CALLED SPOUSE (NOMAN) REGARDING D/C NEEDS AND PLANS. PATIENTS WILL DRIVE HIM HOME AT DISCHARGE AND THERE IS A RAMP TO ENTER HOME AND NO STAIRS INSIDE. PATIENT HAS HELP DAILY WITH BATHING DRESSING, EATING, MEDS, AND TOILETING. PATIENTS HANDS ARE NUMB AND IT IS HARD TO FEED HIMSELF PER . PATIENT HAS A WHEELCHAIR, WALKER, CANE, SHOWER STOOL, AND BS COMMODE IF NEEDED AT HOME. PATIENTS PCP IS DR. STANLEY AND PHARMACY IS [facility] [address]. PATIENTS VERBALLY CHOSE [facility] FOR PATIENT AND FORM IS FILED IN CHART. CM WILL CONTINUE TOF FOLLOW PATIENT WITH D/C NEEDS AND PLANS. [facility]CP [facility] ON [address] () [phone] Firestop/Containment Worker: Tran Pagan DCPIA - Discharge Planning Initial Assessment Updated by [email or web address]: Tran Pagan on 02/25/18 9:34 am * Is the patient Alert and Oriented? Yes * How many steps to enter\exit or inside your home? RAMP * PCP DR. STANLEY * [facility] [address] * Preadmission Environment Home with Family * ADLs Partial Dependent * Partial ADLs (Assistance needed) Ambulation Bathing Dressing Eating Medication Management Toileting * Equipment Bedside Commode Cane Shower Chair Walker Wheelchair * List name and contact numbers for known caregivers / representatives who currently or will assist patient after discharge: NOMAN GRIGGS () * Verbal permission to speak to the caregivers and representatives has been obtained from the patient. Yes * Community resources currently utilized None * Additional services required to return to the preadmission environment? Yes * Can the patient safely return to the preadmission environment? Yes * Has this patient been hospitalized within the prior 30 days at any hospital? No Last DP export: 02/28/18 3:03 pm Patient Name: OMAIRA CARPENTER Page 94943 at 0715 All edits/amendments must be made on the electronic document DICTATION DATE: 03/06/18713 FACILITY DESIGNER: RAFFY 03/06/18713 RPT#: [id number] DC DATE:03/04/18 STATUS: DIS IN [facility] [address] [place] [address] END OF REPORT
== END 2018-03-04 01:30 | disposition short-term general hospital (02) | DRG 551 ==
LOC: D.ER 22:54 → D.EDHOLD 02-22 03:12 → D.MS 02-22 03:12
PROVIDERS: Emergency Medicine; Internal Medicine Nephrology; ADMIT Family Medicine
DX: M48.02 Spinal stenosis, cervical region (principal); G95.19 Other vascular myelopathies; J96.10 Chronic respiratory failure, unspecified whether with hypoxia or hypercapnia; Z68.41 Body mass index [BMI] 40.0-44.9, adult; G72.9 Myopathy, unspecified; R00.1 Bradycardia, unspecified; I11.0 Hypertensive heart disease with heart failure; I50.9 Heart failure, unspecified; I70.203 Unspecified atherosclerosis of native arteries of extremities, bilateral legs; J44.9 Chronic obstructive pulmonary disease, unspecified; E66.01 Morbid (severe) obesity due to excess calories

== ENCOUNTER → 2018-07-10 11:25 | Outpatient (CLI) | payer OTHER ==
[2018-02-23 09:01] VITALS: BMI 44.6
[~2018-07-10 11:25] MED LIST changes: +MELATONIN 3 MG1 TAB PO
[2018-07-10 12:00] LABS: APPEARANCE SL CLDY (CLEAR); BACTERIA MANY /hpf (NONE SEEN); BILIRUBIN NEGATIVE (NEGATIVE); COLOR YELLOW (YELLOW); EPITHELIAL CELLS 0-5 /hpf (0-5); GLUCOSE NEGATIVE (NEGATIVE); KETONE NEGATIVE (NEGATIVE); NITRITE NEGATIVE (NEGATIVE); PROTEIN 1+ mg/dL (NEGATIVE); RED CELLS - URINE 0-5 /hpf (0-5); SPECIFIC GRAVITY 1.015 (1.005-1.020); UROBILINOGEN NORMAL (NORMAL)
== END | disposition home or self-care (01) ==
LOC: D.LABREF 11:25
PROVIDERS: ATTEND Family Medicine
DX: N39.0 Urinary tract infection, site not specified (principal)

== ENCOUNTER → 2018-10-10 12:35 | Outpatient (CLI) | payer OTHER ==
[2018-02-23 09:01] VITALS: BMI 44.6
[2018-10-10 13:38] LABS: APPEARANCE CLEAR (CLEAR); BILIRUBIN NEGATIVE (NEGATIVE); COLOR YELLOW (YELLOW); GLUCOSE NEGATIVE (NEGATIVE); KETONE NEGATIVE (NEGATIVE); NITRITE NEGATIVE (NEGATIVE); PROTEIN NEGATIVE (NEGATIVE); SPECIFIC GRAVITY 1.015 (1.005-1.020); UROBILINOGEN NORMAL (NORMAL)
[2018-10-10 13:39] LABS: BACTERIA FEW /hpf (NONE SEEN); EPITHELIAL CELLS 0-5 /hpf (0-5); MUCUS <1+ /lpf (NONE SEEN); WHITE CELLS - URINE 0-5 /hpf (0-5)
== END | disposition home or self-care (01) ==
LOC: D.LABREF 12:35
PROVIDERS: ATTEND Family Medicine
DX: N39.0 Urinary tract infection, site not specified (principal)

== ENCOUNTER → 2018-11-02 13:51 | Outpatient (CLI) | payer OTHER ==
[2018-02-23 09:01] VITALS: BMI 44.6
[2018-11-02 14:17] LABS: APPEARANCE CLEAR (CLEAR); BILIRUBIN NEGATIVE (NEGATIVE); COLOR STRAW (YELLOW); GLUCOSE NEGATIVE (NEGATIVE); KETONE NEGATIVE (NEGATIVE); NITRITE NEGATIVE (NEGATIVE); PROTEIN NEGATIVE (NEGATIVE); UROBILINOGEN NORMAL (NORMAL)
== END | disposition home or self-care (01) ==
LOC: D.LABREF 13:51
PROVIDERS: ATTEND Family Medicine
DX: N39.0 Urinary tract infection, site not specified (principal)

== ENCOUNTER → 2019-01-31 14:39 | Outpatient (CLI) | payer OTHER ==
[2018-02-23 09:01] VITALS: BMI 44.6
[2019-01-31 15:04] LABS: BASOPHILS 0.7 % (0-2); EOSINOPHILS 7.2 % (0-7); HEMATOCRIT 37.9 % (42.0-54.0); HEMOGLOBIN 12.2 g/dL (13.5-17.5); IMMATURE GRANULOCYTES 0.2 % (0-5); LYMPHOCYTES 16.6 % (15-50); MCH 27.9 pg (26.0-34.0); MCHC 32.2 g/dL (31.0-37.0); MCV 86.5 fL (80.0-100.0); MEAN PLATELET VOLUME 9.1 fL (7.4-10.4); MONOCYTES 9.2 % (2-11); NEUTROPHILS 66.1 % (40-80); PLATELET COUNT 165 10x3/uL (130-400); RBC 4.38 10x6/uL (4.20-6.10); RDW 13.7 % (11.5-14.5); WBC 4.5 10x3/uL (4.8-10.8)
[2019-01-31 15:11] LABS: C-REACTIVE PROTEIN 0.7 mg/dL (0.0-0.9); URIC ACID 6.7 mg/dL (2.6-7.2)
[2019-01-31 16:06] LABS: ERYTHROCYTE SEDIMENTATION RATE 10 mm/hr (0-20)
== END | disposition home or self-care (01) ==
LOC: D.LABREF 14:39
PROVIDERS: ATTEND Family Medicine
DX: M10.9 Gout, unspecified (principal); B96.1 Klebsiella pneumoniae [K. pneumoniae] as the cause of diseases classified elsewhere; M86.10 Other acute osteomyelitis, unspecified site